=== PATIENT | male | born 1975 | race Caucasian/White ===

== ENCOUNTER 2022-05-08 18:41 | Emergency (ER) | payer BC, SELFPAY ==
--- NOTE | ~2022-05-08 | XR_ITS ---
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 RESULT: Lines, tubes, and devices: None. Lungs and pleura: Focal area reticulonodular opacities in the right lower lung. Cardiomediastinal silhouette: Stable. Other: No acute osseous or upper abdominal finding. IMPRESSION: Right lower lung opacities may represent atypical infection. Reviewed, dictated and finalized at location K. DRIVER
[2022-05-08 19:07] VITALS: BP 132/83; PULSE 131; RESP 20; TEMP 39.4; O2SAT 97
--- NOTE | 2022-05-08 19:07 | ED.URI ---
HPI - URI/Sore Throat General Chief Complaint: Upper Respiratory Infection Stated Complaint: Cough,Congestion Time Seen by Provider: 05/08/22 19:07 Source: patient Mode of arrival: ambulatory Limitations: no limitations History of Present Illness HPI Narrative: 47-year-old male presents with complaint of fever, fatigue, body aches, nasal congestion, sore throat, cough since yesterday afternoon. Last took Tylenol this morning. States that he has been resting in bed all day. Denies nausea vomiting diarrhea. Reports mild shortness of breath with exertion. No history of pneumonia. All systems reviewed and negative except as noted above. Related Data Allergies Allergy/AdvReac Type Severity Reaction Status Date / Time No Known Allergies Allergy Verified 05/08/22 19:14 Review of Systems Review of Systems: CONSTITUTIONAL: Reports fever, chills, or sweats. EYES: Denies visual changes, redness, or discharge. ENT: reports rhinorrhea, congestion, sore throat. Denies otalgia. CARDIOVASCULAR: Denies chest pain, palpitations, or edema. RESPIRATORY: reports cough. Denies dyspnea. GASTROINTESTINAL: Denies abdominal pain, nausea, vomiting, or diarrhea. GENITOURINARY: Denies dysuria or hematuria. SKIN: Denies rash or itching. MUSCULOSKELETAL: Denies back pain, joint pain, or myalgia. NEUROLOGIC: Denies headache, numbness, or weakness. PSYCHIATRIC: Denies anxiety or depression. All other systems reviewed are negative, except as documented in HPI. [facility] Past Medical History Medical History GERD (gastroesophageal reflux disease) Irritable bowel syndrome Social History Social History Smoking status: Never smoker Alcohol intake: never Substance use: never Comments At time of signature, agree with nursing past medical, surgical, social and family history. There is no relevant family history pertinent to the presenting complaint. Exam Narrative: GENERAL: This is a well-nourished, well-developed patient, in no apparent distress. HEAD: normocephalic, atraumatic. EYES: PERRL. Sclera clear/white. Vision is grossly intact. EARS: External ears normal, auditory canals clear and without drainage, TMs normal without perforation. Hearing grossly intact. NOSE: External nose normal with no obvious nasal discharge, nares without redness, no rhinorrhea. THROAT: Mucous membranes moist, erythema posterior pharynx. NECK: Neck supple, non-tender without lymphadenopathy, masses or thyromegaly. CARDIOVASCULAR: Regular rate and rhythm without murmurs, gallops, or rubs. RESPIRATORY: Decreased on expiration throughout all lung frias. No wheezes, rales, or rhonchi. GASTROINTESTINAL: Abdomen soft, non-tender, nondistended. Bowel sounds are active. No hepato-splenomegaly, or palpable masses. No guarding. SKIN: warm, Dry, intact with no suspicious lesions or rash, good texture and turgor. NEURO: awake, alert, and oriented to person, place and time. There were no obvious focal neurologic abnormalities. EXTREMITIES: No joint tenderness, effusion, or edema noted. Course Course Level of Care: Express Care Visit Vital Signs Vital signs: Vital Signs Temperature 39.4 C H 05/08/22 19:07 Pulse Rate 131 H 05/08/22 19:07 Respiratory Rate 20 05/08/22 19:07 Blood Pressure 132/83 05/08/22 19:07 Pulse Oximetry 97 05/08/22 19:07 Oxygen Delivery Room Air 05/08/22 19:07 Temperature 39.4 C H 05/08/22 19:07 Pulse Rate 131 H 05/08/22 19:07 Respiratory Rate 20 05/08/22 19:07 Blood Pressure 132/83 05/08/22 19:07 Pulse Oximetry 97 05/08/22 19:07 Oxygen Delivery Room Air 05/08/22 19:07 Reviewed, patient given Tylenol to treat fever. MDM - URI/Sore Throat MDM Narrative Medical decision making narrative: Patient is aware of diagnosis, understands and agrees to treatment plan. Anticipatory guidance given. Nydia
[2022-05-08] MEDS: ACETAMINOPHEN 500 MG TABLET 1000 MG PO (19:09)
[2022-05-08 19:39] VITALS: PULSE 135; TEMP 39.2
== END 2022-05-08 19:39 | disposition home or self-care (01) ==
PROVIDERS: Emergency Provider Nurse Practitioner Family
DX: J10.1 Influenza due to other identified influenza virus with other respiratory manifestations (principal); J18.9 Pneumonia, unspecified organism; Z20.822 Contact with and (suspected) exposure to COVID-19; K21.9 Gastro-esophageal reflux disease without esophagitis
CPT/HCPCS: 71046; 87426; 87804; 99213; A9270; C9803; G0463